=== PATIENT | female | born 1980 | race Caucasian/White ===

== ENCOUNTER 2021-12-22 01:29 | Emergency (ER) | payer MEDICAID ==
[~2021-12-22] VITALS: Ht 165.1 cm; Wt 68.0 kg
[2021-12-22 01:45] VITALS: BP_SYST 122
--- NOTE | 2021-12-22 02:02 | NUR ---
Patient to ER [facility] to [facility] for evaluation. Side rails up.
--- NOTE | 2021-12-22 02:05 | NUR ---
Dr. Flores bedside for pt eval
--- NOTE | 2021-12-22 02:08 | NUR ---
Pt BIB family to ED C/O left sided chest pain radiating to left shoulder No other complaints noted. VSS no s/s of acute distress Resting in comfort on gurney rails up
--- NOTE | 2021-12-22 02:13 | NUR ---
Pt verbalized understanding that she's awaiting blood draw from Lab
[2021-12-22 02:33] LABS: BASOPHILS % (AUTO) 0.5 % (0.0-2.0); EOSINOPHILS # (AUTO) 0.1 K/uL (0.0-0.4); EOSINOPHILS % (AUTO) 2.6 % (0.0-4.0); HEMOGLOBIN 12.5 g/dL (12.0-16.0); LYMPHOCYTES # (AUTO) 1.8 K/uL (1.0-5.5); LYMPHOCYTES % (AUTO) 36.3 % (20.5-51.5); MEAN CORPUSCULAR HEMOGLOBIN 30 pg (27-31); MEAN CORPUSCULAR HGB CONC 34 % (32-36); MEAN CORPUSCULAR VOLUME 88 fL (79.0-98.0); MONOCYTES # (AUTO) 0.4 K/uL (0.0-1.0); MONOCYTES % (AUTO) 8.6 % (1.7-9.3); NEUTROPHILS # (AUTO) 2.5 K/uL (1.8-7.7); PLATELET COUNT (AUTO) 259 K/uL (130-430); RED BLOOD CELL COUNT(AUTO) 4.22 MIL/uL (4.2-6.2); RED CELL DISTRIBUTION WIDTH 13.2 % (9.0-15.0); WHITE BLOOD COUNT (AUTO) 4.9 K/uL (4.8-10.8)
[2021-12-22 02:47] LABS: CALCIUM 8.3 mg/dL (8.4-11.0); CREATININE 0.6 mg/dL (0.55-1.30); POTASSIUM 3.7 mmol/L (3.5-5.1)
[2021-12-22 02:52] LABS: ALBUMIN 3.6 g/dL (3.4-4.8); TOTAL BILIRUBIN 0.2 mg/dL (0.0-1.0)
[2021-12-22 03:24] VITALS: BP_SYST 122
--- NOTE | 2021-12-22 03:24 | NUR ---
Patient given written and verbal discharge instructions and verbalizes understanding. ER MD discussed with patient the results and treatment provided. Patient in stable condition. ID arm band removed. Patient educated on pain management and to follow up with PMD. Pain Scale 0/10 Opportunity for questions provided and answered.
== END 2021-12-22 03:24 | disposition home or self-care (01) ==
LOC: SED 01:29
DX: R07.89 Other chest pain (principal); Z20.822 Contact with and (suspected) exposure to COVID-19
CPT/HCPCS: 36415; 80053; 85025; 85379; 99283

== ENCOUNTER 2022-07-20 19:37 | Emergency (ER) | payer MEDICAID ==
[~2022-07-20] VITALS: Ht 165.1 cm; Wt 69.9 kg
[2022-07-20 19:42] VITALS: BP_SYST 128
--- NOTE | 2022-07-20 19:45 | NUR ---
HERE FOR CHEST PAIN RADIATES TO BACK, SUDDEN ONSET SINEC 1400 TODAY. PT DENIES SOB, DENIES N/V. PT AAOX4. DENIES RECENT ILLNESS. PMH;DENIES
--- NOTE | 2022-07-20 19:48 | NUR ---
ER at bedside examining patient.
--- NOTE | 2022-07-20 20:09 | NUR ---
Patient given written and verbal discharge instructions and verbalizes understanding. ER MD Flores discussed with patient the results and treatment provided. Patient in stable condition. ID arm band removed. Patient educated on pain management and to follow up with PMD. Opportunity for questions provided and answered.
[2022-07-20 20:13] VITALS: BP_SYST 139
== END 2022-07-20 20:09 | disposition home or self-care (01) ==
LOC: SED 19:37
DX: R07.89 Other chest pain (principal); F41.9 Anxiety disorder, unspecified; Z79.899 Other long term (current) drug therapy
CPT/HCPCS: 93005; 99283